=== PATIENT | male | born 1970 | race Caucasian/White ===

== ENCOUNTER 2017-12-21 20:48 | Emergency (ER) | payer BC, SELFPAY ==
[2017-12-21 21:08] VITALS: BP 118/76; PULSE 64; RESP 18; TEMP 37.2; O2SAT 100
[2017-12-21] MEDS: TET,DIPH,PERTUSS(ACELL),VAC/PF 0.5 ML SYRINGE IM (21:17)
--- NOTE | 2017-12-21 21:33 | ED.WOUNDLAC ---
HPI - Wound/Laceration General Chief Complaint: Wound/Laceration Stated Complaint: Cut left index knuckle Time Seen by Provider: 12/21/17 21:32 Source: patient Mode of arrival: ambulatory Limitations: no limitations History of Present Illness HPI narrative: 47-year-old male with noncontributory medical history presents with a clean, superficial laceration on the dorsum of his left hand suffered just prior to arrival with a sharp knife. His tetanus will need to be updated. He denies any numbness, tingling or weakness, He denies other injury Place: home Patient tetanus UTD: No Context: accidental Associated symptoms: none Related Data Allergies Allergy/AdvReac Type Severity Reaction Status Date / Time naproxen [From Aleve] Allergy Verified 12/21/17 21:39 Review of Systems Review of Systems All systems reviewed & are unremarkable except as noted in HPI and below Constitutional Denies chills, Denies fever(s), Denies lethargy and Denies weakness Eyes Denies change in vision, Denies eye discharge, Denies irritation and Denies loss of vision ENT Ears, Nose, Mouth, and Throat: Denies change in voice, Denies neck pain and Denies sore throat Cardiovascular Denies chest pain, Denies irregular heart rhythm, Denies lightheadedness, Denies palpitations, Denies dyspnea, Denies dyspnea on exertion and Denies orthopnea Respiratory Denies cough, Denies dyspnea, Denies dyspnea on exertion and Denies wheezing Gastrointestinal Gastrointestinal: Denies abdominal pain, Denies change in bowel habits, Denies diarrhea, Denies nausea and Denies vomiting Genitourinary Denies hematuria, Denies flank pain, Denies urinary incontinence and Denies urinary urgency Musculoskeletal Denies neck pain Integumentary/Breasts Denies pruritus, Denies erythema, Denies rash and Reports wounds Neurologic Denies confusion, Denies loss of vision and Denies weakness Psychiatric Denies anxiety, Denies confusion, Denies depression, Denies homicidal ideation and Denies suicidal ideation Endocrine Denies palpitations Hematologic/Lymphatic Denies easy bruising Allergic/Immunologic Denies wheezing PFSH Social History Smoking Status: Never smoker Exam Narrative Exam Narrative: GEN: AOx3 and in mild distress EYES: Pupils are equal, round, and reactive to light and accommodation. Extraoccular muscles are intact bilaterally. There is no subconjunctival hemorrhage or exudate. CHEST: Lungs are clear to auscultation bilaterally and free of wheezes, rales, or rhonchi. Heart rate is regular rhythm, there are no murmurs, clicks, rubs, or gallops. There is no chest wall tenderness. ABD: Abdomen is soft and nontender. There is no guarding or rebound. Bowel sounds are normal in all 4 quadrants. There is no mass or organomegaly. EXT: 1 cm superficial laceration on dorsum of left hand over 2nd MCP. It is visualized in a bloodless field and tendon glide noted. No arterial involvement. Full painless ROM of all extremities with no loss of sensation or strength. SKIN: Warm, pink, and dry. No erythema or rash Initial Vital Signs Initial Vital Signs: Vital Signs Temperature 99.0 F 12/21/17 21:08 Pulse Rate 64 12/21/17 21:08 Respiratory Rate 18 12/21/17 21:08 Blood Pressure 118/76 12/21/17 21:08 Pulse Oximetry 100 12/21/17 21:08 Procedures Laceration Repair Laceration 1: Site: hand Side (If applicable): left Size (cm): 1 Description: linear Depth: simple, single layer Local Anesthetic: lidocaine 1% and with bicarb Amount of anesthesia used (mL): 2 Pre-repair: wound explored, irrigated extensively and deep structures intact Skin layer closed with: nylon Size (cm): 4-0 Number of sutures: 3 Technique: simple, interrupted Course Orders Ordered: Discontinued Medications Diphtheria/Tetanus/Acell Pertussis (Adacel) 0.5 ml IM .ONCE ONE Stop: 12/21/17 21:16 Last Admin: 12/21/17 21:17 Dose: 0.5 ml Vital Signs - 8 hr 12/21/17 21:08 12/21/17 22:25 12/21/17 22:28 Temperature 99.0 F 99.0 F Pulse Rate 64 60 60 Respiratory Rate 18 18 Blood Pressure 118/76 118/76 Blood Pressure [Right Arm] 111/68 Pulse Oximetry 100 95 95 Discharge Plan Departure Patient Disposition: Home Clinical Impression: Hand laceration Discharge Date/Time: 12/21/17 22:32 Interventions: ED Discharge Assessment Last Done: 12/21/17 22:32 Instructions: DI for Laceration Repair Activity Restrictions/Additional Instructions: Please keep the wound clean and dry to the best of your ability. Please monitor for signs of infection such as redness to the skin or increasing pain. Have the sutures removed by your doctor in about 7 days. If you are unable to get into your doctor, we would be happy to remove the sutures in that same timeframe.
[2017-12-21 22:25] VITALS: BP 111/68; PULSE 60; O2SAT 95
[2017-12-21 22:28] VITALS: BP 118/76; PULSE 60; RESP 18; TEMP 37.2; O2SAT 95; BMI 29.0
== END 2017-12-21 22:32 | disposition home or self-care (01) ==
PROVIDERS: Emergency Provider Emergency Medicine
DX: S61.211A Laceration without foreign body of left index finger without damage to nail, initial encounter (principal); W26.0XXA Contact with knife, initial encounter
CPT/HCPCS: 12001; 90471; 99283; 90715